=== PATIENT | male | born 1980 | race African-American/Black ===

== ENCOUNTER 2022-04-27 19:52 | Emergency (ER) | payer OTHER ==
[~2022-04-27] VITALS: Ht 193 cm; Wt 77.1 kg
--- NOTE | 2022-04-27 20:12 | NUR ---
After being triaged. Patient was placed back in the waiting room due to no beds available in the ER at this time.
[2022-04-27 21:05] LABS: HEMATOCRIT 39.3 % (36.7-47.1); MEAN CORPUSCULAR HEMOGLOBIN 27.6 uug (23.8-33.4); MEAN CORPUSCULAR VOLUME 87.2 fL (73.0-96.2); PLATELET COUNT (AUTO) 231 K/uL (152-348)
[2022-04-27 21:10] LABS: *BILIRUBIN,URIN NEGATIVE (NEGATIVE); *BLOOD, URINE 2+ (NEGATIVE); *CLARITY,URINE CLEAR (CLEAR); *COLOR,URINE YELLOW (YELLOW); *KETONES,URINE NEGATIVE (NEGATIVE); LEUKOCYTE ESTERASE ,URINE NEGATIVE (NEGATIVE); NITRITE, URINE NEGATIVE (NEGATIVE); PH,URINE 7.5 (5.0-8.0); UGLUCOSE NEGATIVE (NEGATIVE)
[2022-04-27 21:27] LABS: BACTERIA,URINE NONE SEEN /HPF (NONE SEEN); CARBON DIOXIDE 29 mmol/L (21-32); CHLORIDE 101 mmol/L (98-107); CREATININE 0.9 mg/dL (0.6-1.3); GLUCOSE 103 mg/dL (74-106); POTASSIUM 3.6 mmol/L (3.5-5.1); SQUAMOUS EPITHELIAL CELL,UR NONE SEEN /HPF (NONE SEEN); UREA NITROGEN, BLOOD 12 mg/dL (7-18); WBC,URINE 0-3 /HPF (0-3)
[2022-04-27 21:28] LABS: ETHANOL < 3 MG/DL (0-0)
[2022-04-27 21:30] LABS: *AMPHETAMINE, URINE POSITIVE (NEGATIVE); *CANNABINOID, URINE NEGATIVE (NEGATIVE); *COCCAINE, URINE NEGATIVE (NEGATIVE); *OPIATE, URINE NEGATIVE (NEGATIVE); *PHENCYCLIDINE SCREEN,URINE NEGATIVE (NEGATIVE)
[2022-04-27 21:36] LABS: ALANINE AMINOTRANSFERASE 25 U/L (16-63); ALKALINE PHOSPHATASE 71 U/L (50-136); ASPARTATE AMINOTRANSFERASE 50 U/L (15-37); BILIRUBIN,DIRECT 0.1 mg/dL (0.0-0.2); BILIRUBIN,TOTAL 0.4 mg/dL (0.2-1.0); TOTAL PROTEIN, SERUM 8.1 g/dL (6.4-8.2)
[2022-04-27 22:33] LABS: THYROID STIMULATING HORMONE 1.176 mIU/mL (0.358-3.740)
--- NOTE | 2022-04-27 23:00 | NUR ---
Patient sleeping on chair in the waiting room with no distress noted. Patient waiting for bed availability in the ER at this time.
--- NOTE | 2022-04-28 03:10 | NUR ---
Patient placed in room 5A at this time.
--- NOTE | 2022-04-28 07:07 | NUR ---
SBAR to Sherrie MACE
--- NOTE | 2022-04-28 07:55 | NUR ---
PATIENT IS AWAKE, ALERT, ORIENTED X4 WITH NO COMPLAINTS. VITAL SIGNS STABLE. HE IS AMBULATORY WITH STEADY GAIT. HE REQUESTS A "BUS TOKEN". I GOT HIM A TAP CARD FOR THE BUS FROM NURSING OFFICE. DC AND FOLLOW UP INSTRUCTIONS GIVEN AND EXPLAINED TO PATIENT WHO STATES HE UNDERSTANDS ALL INSTRUCTIONS
--- NOTE | 2022-04-28 07:59 | NUR ---
I GAVE HIM A WARM BREAKFAST TRAY, WATER, SANDWICHES AND JUICE. HE STATES HE HAS "SOMEWHERE TO SLEEP OVERNIGHT, IM NOT HOMELESS TODAY OR RIGHT NOW". HE IS WAERING A LONG SLEEVE SWEATSHIRT AND JEANS AND HAS CLOSED TOE SHOES WITH SOCKS
== END 2022-04-28 08:05 | disposition home or self-care (01) ==
LOC: ER 19:55
DX: R10.33 Periumbilical pain (principal); R53.1 Weakness; Z20.822 Contact with and (suspected) exposure to COVID-19
CPT/HCPCS: 36415; 84443; 84484; 85025; 93005; A4663; G0480

== ENCOUNTER 2024-07-17 16:50 | Emergency (ER) | payer OTHER ==
[~2024-07-17] VITALS: Ht 190.5 cm; Wt 77.1 kg
[2024-07-17] MEDS ORDERED: HALOPERIDOL LACTATE 5 MG/1 ML VIAL ONE (17:01)
[2024-07-17] MEDS ORDERED: diphenhydrAMINE 50 MG/1 ML VIAL ONE (17:01)
[2024-07-17] MEDS: HALOPERIDOL LACTATE 5 MG/1 ML VIAL IM ONE (17:11)
[2024-07-17] MEDS: diphenhydrAMINE 50 MG/1 ML VIAL IM ONE (17:11)
[2024-07-17 17:18] LABS: BASOPHILS % (AUTO) 0.3 % (0.0-2.0); EOSINOPHILS % (AUTO) 0.1 % (0.0-7.0); HEMATOCRIT 38.7 % (36.7-47.1); HEMOGLOBIN 12.6 g/dL (12.5-16.3); LYMPHOCYTES # (AUTO) 0.6 K/uL (0.8-4.8); LYMPHOCYTES % (AUTO) 10.8 % (20.5-51.5); MEAN CORPUSCULAR HEMOGLOBIN 27.6 uug (23.8-33.4); MEAN CORPUSCULAR HGB CONC 33 g/dL (32.5-36.3); MEAN CORPUSCULAR VOLUME 84.8 fL (73.0-96.2); MONOCYTES # (AUTO) 0.2 K/uL (0.1-1.30); MONOCYTES % (AUTO) 3.8 % (0.0-11.0); NEUTROPHILS # (AUTO) 4.8 K/uL (1.8-8.9); PLATELET COUNT (AUTO) 225 K/uL (152-348); RED BLOOD CELL COUNT(AUTO) 4.56 MIL/uL (4.06-5.63); RED CELL DISTRIBUTION WIDTH 13.9 % (12.1-16.2); WHITE BLOOD COUNT (AUTO) 5.6 K/uL (3.6-10.2)
[2024-07-17 17:19] LABS: DIFFERENTIAL COMMENT 1
[2024-07-17 17:24] LABS: CALCIUM 9.2 mg/dL (8.5-10.1); CARBON DIOXIDE 25 mmol/L (21-32); CHLORIDE 107 mmol/L (98-107); CREATININE 1.4 mg/dL (0.6-1.3); GLUCOSE 102 mg/dL (74-106); POTASSIUM 3.7 mmol/L (3.5-5.1); SODIUM SERUM 145 mmol/L (136-145); UREA NITROGEN, BLOOD 13 mg/dL (7-18)
[2024-07-17 17:29] LABS: ALANINE AMINOTRANSFERASE 16 U/L (16-63); ALBUMIN 4.1 g/dL (3.4-5.0); ALKALINE PHOSPHATASE 68 U/L (50-136); ASPARTATE AMINOTRANSFERASE 31 U/L (15-37); BILIRUBIN,DIRECT 0.2 mg/dL (0.0-0.2); BILIRUBIN,TOTAL 0.6 mg/dL (0.2-1.0); TOTAL PROTEIN, SERUM 7.9 g/dL (6.4-8.2)
[2024-07-17 17:30] LABS: ETHANOL 294 MG/DL (0-10)
[2024-07-17 17:31] LABS: ACETAMINOPHEN < 2.0 ug/mL (10-30)
[2024-07-17 18:26] LABS: *BILIRUBIN,URIN NEGATIVE (NEGATIVE); *BLOOD, URINE 2+ (NEGATIVE); *CLARITY,URINE CLEAR (CLEAR); *COLOR,URINE YELLOW (YELLOW); *KETONES,URINE TRACE (NEGATIVE); *PROTEIN,URINE TRACE (NEGATIVE); *UROBILINOGEN,URINE 0.2 E.U./dl (NORMAL); LEUKOCYTE ESTERASE ,URINE NEGATIVE (NEGATIVE); NITRITE, URINE NEGATIVE (NEGATIVE); PH,URINE 5.5 (5.0-8.0); UGLUCOSE NEGATIVE (NEGATIVE)
[2024-07-17 18:28] LABS: WBC,URINE 0-3 /HPF (0-3)
[2024-07-17 18:34] LABS: *AMPHETAMINE, URINE NEGATIVE (NEGATIVE); *BARBITURATE, URINE NEGATIVE (NEGATIVE); *BENZODIAZEPINE, URINE NEGATIVE (NEGATIVE); *CANNABINOID, URINE NEGATIVE (NEGATIVE); *COCCAINE, URINE NEGATIVE (NEGATIVE); *OPIATE, URINE NEGATIVE (NEGATIVE); *PHENCYCLIDINE SCREEN,URINE NEGATIVE (NEGATIVE); FENTANYL, URINE NEGATIVE (NEGATIVE)
[2024-07-17 22:40] VITALS: BP 118/69; TEMP 97.7; O2SAT 98
== END 2024-07-17 22:40 | disposition home or self-care (01) ==
LOC: ER 16:50
DX: F10.129 Alcohol abuse with intoxication, unspecified (principal); R07.9 Chest pain, unspecified; Y90.8 Blood alcohol level of 240 mg/100 ml or more
CPT/HCPCS: 80076; 80048; 81001; 85025; 36415; 93005; 99285; 96372; 80299; 80320; 80307; J1200; J1630; A4606; A4663; C1758; G0480